=== PATIENT | female | born 1950 | race Caucasian/White ===

== ENCOUNTER 2024-10-05 13:59 | Inpatient (IN) | payer OTHER, SELFPAY ==
[2024-10-05] VITALS (38 sets, daily range): BP systolic 82–141; BP diastolic 57–99; BMI 34.6
[2024-10-05 08:54] LABS: % Basophils 0.4 % (0-2); % Eosinophils 2.3 % (0-6); % Immature Granulocytes 0.4 % (0-0.5); % Lymphocytes 24.3 % (20.5-51.1); % Monocytes 6.2 % (1.7-9.3); % Neutrophils 66.4 % (42.2-75.2); Absolute Eosinophils 0.1 10^3/uL (0-0.7); Absolute Lymphocytes 1.4 10^3/uL (1.2-3.4); Absolute Monocytes 0.4 10^3/uL (0.1-0.6); Absolute Neutrophils 3.7 10^3/uL (1.4-6.5); Hematocrit 43.5 % (37.0-47.0); Hemoglobin 14.9 g/dL (12.0-16.0); Mean Corp Hgb Conc. 34.3 g/dL (33.0-37.0); Mean Corpuscular Hgb 31.7 pg (27.0-31.0); Mean Corpuscular Volume 92.6 fL (81.0-99.0); Mean Platelet Volume 9.1 fL (7.4-10.4); Nucleated Red Blood Cells % 0 %; Platelet Count 175 10^3/uL (130-400); Red Cell Dist. Width 14.5 % (11.5-14.5); White Blood Cell Count 5.6 10^3/uL (4.8-10.8)
[2024-10-05 09:05] LABS: INR 0.91; PT 12.6 Sec (11.4-14.6)
--- NOTE | 2024-10-05 09:11 | ED.GENMED ---
History of Present Illness
<Alyce Xiao MD, Resident - Last Filed: 10/05/24 09:45>
General
Chief Complaint: Chest Pain
Time Seen by Provider: 10/05/24 08:45
History of Present Illness
History of Present Illness:
74 y/o female with past medical history of A-fib (on Xarelto and metoprolol) and hypothyroidism presenting to ED with chest pain starting this morning. Patient reports occasionally has episodes of A-fib but this morning the pain persisted. Patient
notes heaviness in the mid thoracic region that extends to the lower mandible, sweats, and dizziness. Also notes that had reaction to the RSV vaccine late May this year and has been on chronic prednisone, currently takes milligram prednisone daily.
Denies cough, fever chills, headache, weakness, trouble speaking and loss of sensation. Has been having nasal congestion for the past few days.
Past History
<Alyce Xiao MD, Resident - Last Filed: 10/05/24 09:45>
Past History
ED Past Medical History: Arrthythmia (afib) and Hypothyroidism
ED Past Surgical History: Appendectomy, , Gynecological, Orthopedic and Tonsilectomy
Social History
Tobacco: Non-smoker
Alcohol: None
Drug: None
Personal:
Living: with family
Review of Systems
<Alyce Xiao MD, Resident - Last Filed: 10/05/24 09:45>
Review of Systems
Constitutional: Reports no symptoms
EENT: Reports other (nasal congestion)
Respiratory: Reports no symptoms
Phy Exam
<Alyce Xiao MD, Resident - Last Filed: 10/05/24 09:45>
Physical Exam
Physical Exam:
GENERAL: Alert, in no apparent distress, face is red
EYE: pupils equal and reactive
NECK: Supple, no significant adenopathy. No carotid bruit.
ENT: o/p clr, mmm.
CARDIAC: irregular rate and rhythm.
LUNGS: Clear breath sounds bilaterally, no acute respiratory distress, no wheezes/rales/rhonchi
ABDOMEN: Soft, without focal tenderness, no r/g, no cvat
NEUROLOGICAL: Alert and oriented, no focal neuro deficits
SKIN: Warm and dry, skin intact.
MUSCULOSKELETAL: No edema, well perfused.
PSYCH: Normal and appropriate interaction.
Scores
<Charlie Jeong, DO - Last Filed: 10/05/24 13:29>
Heart Score for Chest Pain Patients
STEMI patient?: No
History: Slightly or Non-Suspicious
ECG: Nonspecific Repolarization
Age: >45 - <65 years
Risk Factors: 1 or 2 Risk Factors
Troponin: </= Normal Limit
Heart Score for Chest Pain Patients: 3
Heart Score Risk: 2.5% MACE over next 6 weeks
Course
<Alyce Xiao MD, Resident - Last Filed: 10/05/24 09:45>
Orders/Labs/Results
Orders:
Orders
10/05/24
Electrocardiogram (*1) Stat
Reason for Study: Chest Pain
Comment: DONE
10/05/24 08:39
Electrocardiogram (*1) Urgent
Reason for Study: Chest Pain
EKG- Treatment ONCE
10/05/24 08:43
Complete Blood Count/With Diff Urgent
Prothrombin Time Urgent
Troponin I Urgent
10/05/24 09:09
Add On- LAB Urgent
Tests Added?: magnesium
Diltiazem 125 mg/125 ml Nss [Cardizem] 125 mg in 125 ml IV NOW
Initial dose in mg/hr, then titrate:: 5
Titrate to keep:: Heart rate 80-100 bpm
Titrate by mg/hr:: 5 mg/hr
Frequency of titrations (minutes):: 15
Maximum dose in mg/hr:: 15
Diltiazem HCl [Cardizem] 10 mg IV NOW STA
CR Chest Portable - 1 View Urgent
Comment:
Reason For Exam: cp
Reason Study Needs to be Portable: Patient Unstable
10/05/24 09:10
Comprehensive Metabolic Panel Urgent
Magnesium Urgent
Comment: ADD ON
10/05/24 10:40
COVID-19 Antigen Urgent
Source: Nasal Swab
Influenza A+B Rapid Molecular Urgent
EFRA Source: Nasal Swab
Specimen Description:
10/05/24 11:02
0.9% Sodium Chloride 500 ml [Nss] 500 ml IV BOLUS
10/05/24 11:38
Troponin I Urgent
10/05/24 12:28
ASA Classification Routine
Propofol [Diprivan] 100 mg IV NOW STA
10/05/24 13:11
Acetaminophen [Tylenol] 1,000 mg PO BIDPRN PRN
Metoprolol [Lopressor] 25 mg PO DAILYPRN PRN
10/05/24 13:15
CARDIOLOGY CONSULT Routine
Consulting Provider: Checo [place]
Was physician already notified: Yes
Polymyxin B/Trimethoprim [Polytrim Ophthalmic Solution] 1 drop LEFT EYE Q4H
Rivaroxaban [Xarelto] 20 mg PO DAILY
10/05/24 13:18
0.9% Sodium Chloride 500 ml [Nss] 500 ml IV BOLUS
10/05/24 14:00
Levothyroxine [Synthroid] 75 mcg PO DAILY
Metoprolol Xl [Toprol Xl] 50 mg PO DAILY
10/06/24 08:00
Cholecalciferol (Vitamin D3) [VITAMIN D3 (cholecalciferol)] 50 mcg PO DAILY
Abnormal Lab Results
10/05/24 10/05/24
08:43 09:10
MCH 31.7 H pg
(27.0-31.0)
Chloride 109 H mmol/L
(98-107)
ALT 47 H U/L
(0-35)
Total Protein 6.2 L g/dl
(6.3-8.2)
10/05/24 08:43
10/05/24 09:10
Vital Signs
Initial and Last Documented VS:
Initial Vital Signs
Temp Pulse Resp
98.4 F 143 20
10/05/24 08:31 10/05/24 08:31 10/05/24 08:31
Last Documented Vital Signs
Temp Pulse Resp BP Pulse Ox
98.5 F 75 20 95/69 97
10/05/24 13:20 10/05/24 13:20 10/05/24 13:20 10/05/24 13:20 10/05/24 13:20
<Charlie Jeong, DO - Last Filed: 10/05/24 13:29>
Orders/Labs/Results
Orders:
Orders
10/05/24
Electrocardiogram (*1) Stat
Reason for Study: Chest Pain
Comment: DONE
10/05/24 08:39
Electrocardiogram (*1) Urgent
Reason for Study: Chest Pain
EKG- Treatment ONCE
10/05/24 08:43
Complete Blood Count/With Diff Urgent
Prothrombin Time Urgent
Troponin I Urgent
10/05/24 09:09
Add On- LAB Urgent
Tests Added?: magnesium
Diltiazem 125 mg/125 ml Nss [Cardizem] 125 mg in 125 ml IV NOW
Initial dose in mg/hr, then titrate:: 5
Titrate to keep:: Heart rate 80-100 bpm
Titrate by mg/hr:: 5 mg/hr
Frequency of titrations (minutes):: 15
Maximum dose in mg/hr:: 15
Diltiazem HCl [Cardizem] 10 mg IV NOW STA
CR Chest Portable - 1 View Urgent
Comment:
Reason For Exam: cp
Reason Study Needs to be Portable: Patient Unstable
10/05/24 09:10
Comprehensive Metabolic Panel Urgent
Magnesium Urgent
Comment: ADD ON
10/05/24 10:40
COVID-19 Antigen Urgent
Source: Nasal Swab
Influenza A+B Rapid Molecular Urgent
EFRA Source: Nasal Swab
Specimen Description:
10/05/24 11:02
0.9% Sodium Chloride 500 ml [Nss] 500 ml IV BOLUS
10/05/24 11:38
Troponin I Urgent
10/05/24 12:28
ASA Classification Routine
Propofol [Diprivan] 100 mg IV NOW STA
10/05/24 13:11
Acetaminophen [Tylenol] 1,000 mg PO BIDPRN PRN
Metoprolol [Lopressor] 25 mg PO DAILYPRN PRN
10/05/24 13:15
CARDIOLOGY CONSULT Routine
Consulting Provider: Checo [place]
Was physician already notified: Yes
Polymyxin B/Trimethoprim [Polytrim Ophthalmic Solution] 1 drop LEFT EYE Q4H
Rivaroxaban [Xarelto] 20 mg PO DAILY
10/05/24 13:18
0.9% Sodium Chloride 500 ml [Nss] 500 ml IV BOLUS
10/05/24 14:00
Levothyroxine [Synthroid] 75 mcg PO DAILY
Metoprolol Xl [Toprol Xl] 50 mg PO DAILY
10/06/24 08:00
Cholecalciferol (Vitamin D3) [VITAMIN D3 (cholecalciferol)] 50 mcg PO DAILY
Abnormal Lab Results
10/05/24 10/05/24
08:43 09:10
MCH 31.7 H pg
(27.0-31.0)
Chloride 109 H mmol/L
(98-107)
ALT 47 H U/L
(0-35)
Total Protein 6.2 L g/dl
(6.3-8.2)
10/05/24 08:43
10/05/24 09:10
Vital Signs
Initial and Last Documented VS:
Initial Vital Signs
Temp Pulse Resp
98.4 F 143 20
10/05/24 08:31 10/05/24 08:31 10/05/24 08:31
Last Documented Vital Signs
Temp Pulse Resp BP Pulse Ox
98.5 F 75 20 95/69 97
10/05/24 13:20 10/05/24 13:20 10/05/24 13:20 10/05/24 13:20 10/05/24 13:20
Procedures
<Charlie Jeong, DO - Last Filed: 10/05/24 13:29>
Cardioversion
Indication:: Afib
Performed by:: medhat
Synchronized?: Yes
Energy Used: Other (300)
Number of attempts: 2
Successful?: No
Complications: no
ASA Risk Score: Class II
Any reaction or bad outcome to prior sedation/anesthesia?: No history of a reaction
Sedation level to be attained: moderate
Chart and allergies reviewed: Yes
Patient reassessed prior to sedation: Yes
Time out completed at (validating right patient & procedure): 12:52
History of difficult intubation: No
Airway free of obstruction: Yes
Patient has a gag reflex: Yes
Patient is able to open mouth: Yes
Patient has no dentures: Yes
Patient has no loose teeth: Yes
Medication administered by Provider during Moderate Sedation: IV Propofol (mg)
Total dose administered: 100
Time drug administered: 12:52
Start Time: 12:52
Stop Time: 01:08
<Alyce Xiao MD, Resident - Last Filed: 10/05/24 09:45>
MDM/Problems Addressed
Differential Diagnosis Includes:
Afib
ACS
Viral myocarditis
Pulmonary embolism
Aortic dissection
Pneumonia
MDM/Problems Addressed:
- EKG
- troponin
- CBC, CMP
- Chest x-ray
- Rate control - Cardizem drip
<Charlie Jeong, DO - Last Filed: 10/05/24 13:29>
MDM/Problems Addressed
Chronic conditions affecting care: Arrhythmia
Acute Exacerbation and/or Progression of Chronic Illness: Arrhythmia
<Charlie Jeong, DO - Last Filed: 10/05/24 13:29>
*Radiology
Radiology exam reviewed: preliminary read by ED provider
*Pulse Oximetry
Patient hypoxic: no
*EKG
Interpreted by ED Provider?: Yes
Interpretation: abnormal
Comparison EKG: changes noted
Heart Rate: 148
Rate: tachycardiac
Rhythm: SVT
[place]: normal axis
Ischemia: non-specific ST changes
*S[facility] [employer] Interpretation
Rate: tachycardiac
Interpretation: abnormal
Heart Rate: 118
Rhythm: atrial flutter
*Critical Care Note
Total Time (30-74mins, 75-104mins- exclusive of procedures): 30
<Charlie Jeong, DO - Last Filed: 10/05/24 13:29>
Update Note
Update Note:
11:15 AM patient still in A-fib intermittent fast with slower rates, will titrate Cardizem as tolerated will start some fluids troponin undetectable will repeat review DC cardioversion versus meds versus admit she will think about what she would
like to do,
12:30 PM patient still in A-fib with intermittently fast rates blood pressure in the 80s troponin x 2 negative labs are negative, at this point I recommended a trial of cardioversion which she has agreed to, she has been compliant with her Xarelto
Attempt x 2 at DC cardioversion she did not hold the sinus rhythm, this point we will let her wake up give her her Xarelto which she is due for metoprolol cardiology has been consulted she sees Dr. Medina CCP hospitalist will admit
ED Attending Note
<Alyce Xiao MD, Resident - Last Filed: 10/05/24 09:45>
-
Portions of this chart may have been created with voice recognition software.� Occasional wrong word or��sound alike� substitutions may have occurred due to the inherent limitations of voice recognition software.
<Charlie Jeong DO - Last Filed: 10/05/24 13:29>
ED Attending Note
Patient seen and examined by attending physician: Yes
I performed a history and physical exam of patient and discussed management with resident, I reviewed resident's note and agree with documented findings and plan of care.: Yes
ED Attending Note:
Seen with resident, 74-year-old female PAF hypothyroid on beta-chris and Xarelto, had RSV shot rash after that started on steroids few days of URI symptoms palpitations and chest pressure no fevers, no hemoptysis here looks like she is in and out
of a fast AF SVT, will start on rate control check electrolytes and viral swabs, troponin
Discharge Plan
Departure
Patient Disposition: Admit
Date of Disposition: 10/05/24
Time of Disposition: 13:13
Admit to: IVU
Presentation/result/management discussed w/ accepting MD/DO: Hospitalist
Patient with high blood pressure during this ER visit?: No
Condition: Fair
Covid-19: Not Applicable
Discharge Problem:
Atrial fibrillation with RVR
Prescriptions:
No Action
acetaminophen [Tylenol Extra Strength] 500 mg Tablet
1,000 mg PO BIDPRN PRN (Reason: mild pain)
levothyroxine 75 mcg Tablet
75 mcg PO DAILY
polymyxin B sulf-trimethoprim 10,000 unit- 1 mg/mL drops
1 drp LEFT EYE Q4H
metoprolol tartrate 25 mg Tablet
25 mg PO DAILYPRN PRN (Reason: palpitations)
cholecalciferol (vitamin D3) [Vitamin D3] 50 mcg (2,000 unit) Tablet
50 mcg PO DAILY
Xarelto 20 mg Tablet
20 mg PO DAILY
metoprolol succinate [Toprol XL] 50 mg tablet extended release 24 hr
50 mg PO DAILY
Referrals:
Naheed Houston DO [Family Provider] -
Interventions
Interventions:
*Risk Screen - Suicide Last Done: 10/05/24 08:31
*General Assessment Last Done: 10/05/24 08:31
*Neglect/Abuse Screening Last Done: 10/05/24 08:31
*ED COVID-19 Vaccine History Last Done: 10/05/24 10:48
ED- Cardiac Assessment Last Done: 10/05/24 10:48
Discharge Date and Time
Print Language: LEBANESE
[2024-10-05 09:16] LABS: Troponin I < 0.012 ng/ml
[2024-10-05] MEDS: CARDIZEM 10 MG IV (09:16)
[2024-10-05] MEDS: CARDIZEM 125 IV (09:17)
[2024-10-05 09:37] LABS: ALT (SGPT) 47 U/L (0-35); AST (SGOT) 30 U/L (14-36); Albumin 3.8 g/dl (3.5-5.0); Alkaline Phosphatase 70 U/L (38-126); Blood Urea Nitrogen 12 mg/dl (7-17); Calcium 8.7 mg/dl (8.4-10.2); Carbon Dioxide 25 mmol/L (22-30); Chloride 109 mmol/L (98-107); Estimated Creatinine Clearance 109 ml/min; Glucose 95 mg/dl (70-99); Magnesium 2.2 mg/dl (1.6-2.3); Potassium 4.4 mmol/L (3.5-5.1); Sodium 142 mmol/L (135-145); Total Bilirubin 0.7 mg/dl (0.2-1.3); Total Protein 6.2 g/dl (6.3-8.2); eGFR > 60.00
[2024-10-05] MEDS: NSS 500 IV ×2 (11:04→13:23)
[2024-10-05 11:05] LABS: COVID-19 Antigen Negative (Negative)
[2024-10-05 12:13] LABS: Troponin I < 0.012 ng/ml
[2024-10-05] MEDS: DIPRIVAN 100 MG IV (12:53)
--- NOTE | 2024-10-05 13:17 | HPS.HSE ---
Family Physician
-
Family Physician: Naheed Houston
Chief Complaint
-
chest pain
History of Present Illness
74 y/o female with past medical history of A-fib (on Xarelto and metoprolol) and hypothyroidism presenting to ED with chest pain starting this morning. Patient reports occasionally has episodes of A-fib but this morning the pain persisted. chest
pain radiating to lower mandible neck and throat she was having sweats, and dizziness. Denies cough, fever chills, headache, weakness, trouble speaking and loss of sensation. denied nasal congestion. denied abdominal pain,n,v,d. denied dysuria or
hematuria.
upon arrival noted in atrial fib with RVR. on Cardizem. admitting for further management.
Medical History
Past Medical History
Past Medical History: Reports Other
Additional Past Medical History:
atrial fib
hypothyroidism
Past Surgical History: Reports Other
Additional Past Surgical History:
appendectomy
tonsillectomy
Social History
Tobacco: Non-smoker
Alcohol: None
Drug: None
Family History
Family History: Not pertinent
Allergies / Home Medications
Allergies reflects when Allergies were last updated in [facility].
Home Medications with original date entered in [facility]
Allergy/Medication List:
Allergies
Allergy/AdvReac Type Severity Reaction Status Date / Time
hydromorphone [From Dilaudid] Allergy Unknown Verified 10/05/24 08:38
shellfish derived Allergy Unknown Verified 10/05/24 08:38
acetaminophen [From Percocet] AdvReac Nausea / Verified 10/05/24 08:38
Vomiting
oxycodone [From Percocet] AdvReac Nausea / Verified 10/05/24 08:38
Vomiting
propoxyphene AdvReac Nausea / Verified 10/05/24 08:38
[From Darvocet-N] Vomiting
Home Medications
acetaminophen 500 mg tablet (Tylenol Extra Strength) 1,000 mg PO BIDPRN PRN mild pain 10/05/24
cholecalciferol (vitamin D3) 50 mcg (2,000 unit) tablet (Vitamin D3) 50 mcg PO DAILY 10/05/24
levothyroxine 75 mcg tablet 75 mcg PO DAILY 10/05/24
metoprolol succinate 50 mg tablet,extended release 24 hr (Toprol XL) 50 mg PO DAILY 10/05/24
metoprolol tartrate 25 mg tablet 25 mg PO DAILYPRN PRN palpitations 10/05/24
polymyxin B sulfate 10,000 unit-trimethoprim 1 mg/mL eye drops 1 drp LEFT EYE Q4H 10/05/24
rivaroxaban 20 mg tablet (Xarelto) 20 mg PO DAILY 10/05/24
Review of Systems
-
Constitutional: Reports No Symptoms
EENT: Reports No Symptoms
Respiratory: Reports Trouble Breathing
Cardiac: Reports No Symptoms, Chest Pain, Diaphoresis and Palpitations
Abdomen/GI: Reports No Symptoms
: Reports No Symptoms
Musculoskeletal: Reports No Symptoms
Skin: Reports No Symptoms
Neurological: Reports Dizzy
Endocrine: Reports No Symptoms
Hematologic/Lymphatic: Reports No Symptoms
Psych: Reports No Symptoms
Physical Exam
Vital Signs
Vital Signs
Temp Pulse Resp BP Pulse Ox
98.5 F 96 14 108/68 4
10/05/24 12:50 10/05/24 12:53 10/05/24 12:53 10/05/24 12:50 10/05/24 12:53
Physical Exam
General: Well Developed, Well Nourished and No Apparent Distress
HEENT: NormoCephalic, Moist mucous membranes and Atraumatic
Respiratory: Clear
Cardiac: Regular Rhythm, Irregular Rhythm and Tachycardia; No Murmur or Rub
GI: Soft, Non Tender, Non Distended and Normal Bowel Sounds; No Organomegaly
Rectal: Deferred by Provider
Musculoskeletal: No Clubbing, No Cyanosis and No Edema
Skin: No Rash
Neuro: AO x 3 and Nonfocal/grossly intact
Psych: Calm
Laboratory Results
-
10/05/24 08:43
10/05/24 09:10
Laboratory Results
PT 12.6 Sec (11.4-14.6) 10/05/24 08:43
INR 0.91 10/05/24 08:43
Total Bilirubin 0.7 mg/dl (0.2-1.3) 10/05/24 09:10
AST 30 U/L (14-36) 10/05/24 09:10
ALT 47 U/L (0-35) H 10/05/24 09:10
Alkaline Phosphatase 70 U/L (38-126) 10/05/24 09:10
Troponin I < 0.012 ng/ml 10/05/24 11:38
Data Reviewed
-
Diagnostic Radiology: Report Reviewed by me
Lab Data: Labs Reviewed by me
Impression/Plan
-
# Atrial for with RVR
-On Xarelto, metoprolol
-Cardiology consulted
-Cardizem drip
-metoprolol and Xarelto continued
# Chest pain r/o ACS
-Troponin negative
-Continue to trend troponin
hypothyroidism
-levothyroxine continued
#DVT prophylaxis
-Xarelto
#CODE status
-full code
--- NOTE | 2024-10-05 14:01 | W.PN.UPDATE ---
Update Note
Progress Note Update
This note serves as an addendum to the H&P by watch case polisher BRIAN Maryam LAGOS
HPI
74F HX A-fib (on Xarelto and metoprolol) and hypothyroidism seen at ED
- onset of chest pain starting this morning
- chest pain radiating to lower mandible neck and throat she was having sweats, and dizziness.
- reports occasionally has episodes of A-fib but this morning the pain persisted
ROS:
Denies cough, fever chills, headache, weakness, trouble speaking and loss of sensation.
Denied nasal congestion.
Denied abdominal pain,n,v,d.
Denied dysuria or hematuria.
PHX: see above
Reviewed VS:
Selected Entries
10/05/24
13:00 10/05/24
13:05 10/05/24
13:10
Pulse 115 64 123
Blood pressure 88/68 100/90
10/05/24
13:20
Pulse 75
Blood pressure 95/69
PE
General: No Apparent Distress
HEENT: Moist mucous membranes and Atraumatic
Respiratory: Clear
Cardiac: In and out of Regular and Irregular Rhythm and Tachycardia; No Murmur
GI: Soft, Non Tender, Non Distended and Normal Bowel Sounds; No Organomegaly
Rectal: Deferred by Provider
Musculoskeletal: No Clubbing, No Cyanosis and No Edema
Skin: No Rash
Neuro: AO x 3 and Nonfocal/grossly intact
Psych: Calm
Laboratory Tests
10/05/24 10/05/24
10:40 11:38
Troponin I < 0.012
SARS-CoV-2 Antigen Negative
CXR: No acute cardiopulmonary process.
EKG
SUPRAVENTRICULAR TACHYCARDIA
NONSPECIFIC ST ABNORMALITY
ABNORMAL ECG
WHEN COMPARED WITH ECG OF 17-JUN-2023 11:28,
PREMATURE ATRIAL COMPLEXES ARE NO LONGER PRESENT
MD INTERVAL HAS DECREASED
VENT. RATE HAS INCREASED BY 57 BPM
ASSESSMENT & PLAN
Prox Atrial for with RVR
Associated with hypotension
failed 2 attempted DCCV @ ER
- On Xarelto, metoprolol
- agree with Cardizem gtt but currently holding due to hypotension
- metoprolol and Xarelto continued
- CBC card consulted
Chest pain r/o ACS
- NEG first TPNI
-Continue to trend troponin
Hypothyroidism
-levothyroxine continued
DVT Px: Xarelto
Full code
IVU
[2024-10-05] MEDS: XARELTO 20 MG PO (14:38)
[2024-10-05] MEDS: POLYTRIM OPHTHALMIC SOLUTION 1 DROP LEFT EYE ×3 (14:38→20:54)
[2024-10-05] MEDS: TOPROL XL 50 MG PO (14:39)
[2024-10-05] MEDS: SYNTHROID 75 MCG PO (14:39)
--- NOTE | 2024-10-05 15:03 | CM ---
Chart reviewed. Patient is here for chest pain. Has a-fib. Currently on card gtt. CM introduced self and role. A female family member also in room. Patient lives in [place] home with her and dog. She is independent and drives. She is a retired
[employer] it portfolio manager. Her son in law or daughter will provide transportation once she is discharged from the hospital. She does not own any DME. She has an active PCP and pharmacy. She denied any +SDOHs.
ANTICIPATED DISCHARGE DISPO: Home, when medically cleared.
--- NOTE | 2024-10-05 16:38 | PTCARENOTE ---
Received patient from the ED with HARISH. Patient presently with HR in the 80's, AF/flutter with runs of SR with frequent PAC's. Patient denies any pain or discomfort, VSS. Oriented to the room and plan of care, call ramirez at bedside. Transfer orders
with cardizem gtt orders, which were discontinued in the ED at 1300 according to report. TT to Dr. Romero who will discontinue cardizem and order prn IV metoprolol.
--- NOTE | 2024-10-05 17:25 | CON.CAR ---
Consultation
Consultation Request
Date/Time Consultation Requested: 10/05/24, 1pm
Date/Time Consultation Performed: 10/05/24, 4pm
Requesting Provider: Nick
Performing Provider: Cristofer
Reason for Consultation: A fib with RVR
Medical History
-
Chief Complaint: palps
History of Present Illness:
74 yo female with PMH of paroxysmal A fib on xarelto, hypothyroid, obesity presented to ED with palps, diaphoresis, chest tightness. Typical sxs of her A fib. She was in A fib with RVR. Trialed on diltiazem drip, then DCCV in ED. Following DCCV
x2, she remains paroxysmal, and was admitted.
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
Past Medical History
Past Medical History: Arrhythmias (paroxysmal A fib), Hypothyroidism and Other (obesity)
Past Surgical History: Appendectomy and Tonsilectomy
Social History
Tobacco: Former Smoker (decades prior)
Family History
Family History: Early CAD (father) and Other (aortic aneurysm, father)
Allergies / Home Medications
Allergy/AdvReac Type Severity Reaction Status Date / Time
hydromorphone [From Dilaudid] Allergy Unknown Verified 10/05/24 08:38
shellfish derived Allergy Unknown Verified 10/05/24 08:38
acetaminophen [From Percocet] AdvReac Nausea / Verified 10/05/24 08:38
Vomiting
oxycodone [From Percocet] AdvReac Nausea / Verified 10/05/24 08:38
Vomiting
propoxyphene AdvReac Nausea / Verified 10/05/24 08:38
[From Darvocet-N] Vomiting
�Medication �Instructions �Recorded �Confirmed �Type
acetaminophen 500 mg tablet 1,000 mg PO BIDPRN PRN mild pain 10/05/24 10/05/24 History
(Tylenol Extra Strength)
cholecalciferol (vitamin D3) 50 50 mcg PO DAILY 10/05/24 10/05/24 History
mcg (2,000 unit) tablet (Vitamin
D3)
levothyroxine 75 mcg tablet 75 mcg PO DAILY 10/05/24 10/05/24 History
metoprolol succinate 50 mg 50 mg PO DAILY 10/05/24 10/05/24 History
tablet,extended release 24 hr
(Toprol XL)
metoprolol tartrate 25 mg tablet 25 mg PO DAILYPRN PRN palpitations 10/05/24 10/05/24 History
polymyxin B sulfate 10,000 1 drp LEFT EYE Q4H 10/05/24 10/05/24 History
unit-trimethoprim 1 mg/mL eye drops
rivaroxaban 20 mg tablet (Xarelto) 20 mg PO DAILY 10/05/24 10/05/24 History
Review of Systems
-
History Source: Patient
All other systems: Negative unless noted
Constitutional: Fatigue
Cardiac: Chest Pain, Diaphoresis and Palpitations
Physical Exam
Vital Signs
Temp Pulse Resp BP Pulse Ox
98.0 F 63 22 129/76 97
10/05/24 15:38 10/05/24 16:15 10/05/24 16:01 10/05/24 16:14 10/05/24 16:11
Lab Results
10/05/24 08:43
10/05/24 09:10
Troponin I < 0.012 ng/ml 10/05/24 11:38
Physical Exam
General: Well Developed and Well Nourished
HEENT: Normocephalic and Anicteric
Respiratory: Clear and Non Labored Respirations
Cardiac: S1/S2 (normal), Irregular Rhythm, Murmur (none), Peripheral Edema (none) and JVD (none)
Musculoskeletal: No Clubbing, No Cyanosis and No Edema
Skin: Warm and Dry
Neuro: AO x 3
Psych: Calm
Impression / Plan
-
74 yo female with PMH of paroxysmal A fib on xarelto, hypothyroid, obesity presented to ED with palps, diaphoresis, chest tightness. Typical sxs of her A fib. She was in A fib with RVR.
Trialed on diltiazem drip, then DCCV in ED. Following DCCV x2, she remains paroxysmal, and was admitted.
Cards: [facility] ([facility])
# A fib with RVR, symptomatic
-h/o of paroxysmal A fib, and on xarelto (CHADS2-VASC =3)
-she takes Toprol XL 50mg daily at home: continue
-she has consulted for PVI, but not ready to proceed yet (takes care of sick and worried about recovery period)
-we discussed AAD: sotalol, tikosyn, amiodarone--she declines
-stop diltiazem drip; we will add diltiazem 180mg daily, first dose now, and re-assess in AM
-if RVR recurs, will go back on diltiazem drip
-echo in AM
-she reports 'normal' stress test in 2022
#Hypothyroidism: she will continue on synthroid
#Obesity
Data Reviewed
-
EKG: Tracing Personally Visualized and interpreted (A fib with RVR) and Other (Tele: Sinus with frequent brief runs of A fib)
Radiology: Report Reviewed by me (CXR: NAD)
Labs: Labs Reviewed by me
[2024-10-05] MEDS: CARDIZEM CD 180 MG PO (17:49)
[2024-10-05] MEDS: TYLENOL 1000 MG PO (19:46)
[2024-10-05 20:03] LABS: Troponin I < 0.012 ng/ml
[2024-10-05] MEDS: ZOFRAN 4 MG IV (20:54)
[2024-10-06 00:11] LABS: Troponin I < 0.012 ng/ml
[2024-10-06] MEDS: POLYTRIM OPHTHALMIC SOLUTION LEFT EYE ×2 (01:50)
[2024-10-06 03:42] VITALS: BP 137/76
--- NOTE | 2024-10-06 04:17 | PTCARENOTE ---
Pt c/o lower abdomen cramps associated with loose stool and nausea. PRN Tylenol and Zofran given and effective. VSS NSR with PACs. Pt ambulates independently in the room. Call ramirez in reach
[2024-10-06 04:49] LABS: HDL Cholesterol 58 mg/dl; LDL Cholesterol, Calculated 92 mg/dl; Total Cholesterol 179 mg/dl (50-199); Triglyceride 145 mg/dl (10-149); Very Low Density Lipoprotein 29 mg/dl (0-30)
[2024-10-06 04:59] LABS: Troponin I < 0.012 ng/ml
[2024-10-06 05:17] LABS: TSH 3.66 uIU/ml (0.47-4.68)
[2024-10-06] MEDS: SYNTHROID 75 MCG PO (05:52)
[2024-10-06] MEDS: POLYTRIM OPHTHALMIC SOLUTION 1 DROP LEFT EYE ×2 (05:52→11:03)
[2024-10-06 05:55] VITALS: BMI 34.3
--- NOTE | 2024-10-06 06:55 | W.PN.HOSP.TC ---
Today's Communication/Plan
-
Discharge home later today
Assessment / Plan
Assessment / Plan
Physical Exam
General: Well Developed, Well Nourished and No Apparent Distress
HEENT: NormoCephalic, Moist mucous membranes and Atraumatic
Respiratory: Clear
Cardiac: Regular Rhythm, Irregular Rhythm and Tachycardia; No Murmur or Rub
GI: Soft, Non Tender, Non Distended and Normal Bowel Sounds; No Organomegaly
Rectal: Deferred by Provider
Musculoskeletal: No Clubbing, No Cyanosis and No Edema
Skin: No Rash
Neuro: AO x 3 and Nonfocal/grossly intact
Psych: Calm
# paroxysmal Atrial fibrillation with RVR
-On Xarelto, metoprolol
-Cardiology consulted, recommend: Home on old Xarelto, metoprolol and new diltiazem, adding PRN propranolol (immediate release) 20 mg q 6hrs prn breakthrough rapid PAF
-s/p Cardizem drip
-metoprolol and Xarelto continued
Ordered echo
Appreciate cardiology help
# Chest pain, not c/w ACS
-Troponin negative
resolved.
#hypothyroidism
-levothyroxine continued
#DVT prophylaxis
-Xarelto
#CODE status
-full code
Total discharge time spent to see the patient, examine the patient on the floor, review data and lab results, discuss discharge plan with patient, nursing staff around 65 minutes
Anticipated Discharge: Today
Subjective/Interval History
-
Date of Service: October 06, 2024
No chest pain
No sob
She would like to go home
Objective Data
-
Vital Signs:
Vital Signs
Temp Pulse Resp BP Pulse Ox
97.9 F 63 17 137/76 94
10/06/24 03:42 10/06/24 04:00 10/06/24 03:42 10/06/24 03:42 10/06/24 03:42
[2024-10-06 08:16] VITALS: BP 141/81
[2024-10-06] MEDS: CARDIZEM CD 180 MG PO (08:18)
[2024-10-06] MEDS: VITAMIN D3 (cholecalciferol) 50 MCG PO (08:19)
[2024-10-06] MEDS: TOPROL XL 50 MG PO (08:19)
[2024-10-06] MEDS: XARELTO 20 MG PO (08:19)
--- NOTE | 2024-10-06 09:09 | PTCARENOTE ---
Received patient this morning oob in the chair eating breakfast. Remains in SR, seen by hospitalist, patient is anxious to go home. Reports no pain or discomfort. Patient scheduled for echo, await further orders from cardiology.
--- NOTE | 2024-10-06 09:41 | W.PN.CD ---
Today's Communication / Plan
-
- Home on old Xarelto, metoprolol and new dilt. She knows to watch her BP/HR on combined dilt/metoprolol
- Home after echo
- I suggest adding PRN propranolol (immediate release) 20 mg q 6hrs prn breakthrough rapid PAF
- F/u with her manufacturing development engineer
Impression / Plan
-
74 yo female with PMH of paroxysmal A fib on xarelto, hypothyroid, obesity presented to ED with palps, diaphoresis, chest tightness. Typical sxs of her A fib. She was in A fib with RVR.
Trialed on diltiazem drip, then DCCV in ED. Following DCCV x2, she remains paroxysmal, and was admitted.
Cards: [facility] ([facility])
AFib RVR
- Now doing well
- Yesterday short runs PAT
- Long hx of PAF
- Not interested in AAD or ablation quite yet
- Home on old Xarelto, metoprolol and new dilt. She knows to watch her BP/HR on combined dilt/metoprolol
- I reviewed AFIb risk factor modification is detail: BMI/ETOH/Exercise/Sleep apnea
Hypothyroidism: she will continue on Synthroid
Obesity
Subjective: No CP or dyspnea
Physical Exam
Vital Signs/Labs
Vital Signs
Temp Pulse Resp BP Pulse Ox
98.3 F 63 20 137/76 96
10/06/24 08:16 10/06/24 04:00 10/06/24 08:16 10/06/24 03:42 10/06/24 08:16
10/05/24 10/06/24 10/07/24
06:59 06:59 06:59
Actual Weight 108.3 kg
10/05/24 08:43
10/05/24 09:10
PT 12.6 Sec (11.4-14.6) 10/05/24 08:43
INR 0.91 10/05/24 08:43
Magnesium 2.2 mg/dl (1.6-2.3) 10/05/24 09:10
Triglycerides 145 mg/dl (10-149) 10/06/24 03:51
LDL Cholesterol, Calc 92 mg/dl 10/06/24 03:51
VLDL Cholesterol, Calc 29 mg/dl (0-30) 10/06/24 03:51
HDL Cholesterol 58 mg/dl 10/06/24 03:51
TSH 3.66 uIU/ml (0.47-4.68) 10/06/24 03:51
LAB Results
10/05/24 10/05/24 10/05/24
08:43 11:38 19:30
Troponin I < 0.012 < 0.012 < 0.012
10/05/24 10/06/24
23:25 03:51
Troponin I < 0.012 < 0.012
Physical Exam
Constitutional: No acute distress
EENT: Anicteric
Cardiovascular: Rhythm & rate is regular and Pedal edema is absent
Respiratory: Respiratory effort normal and Lungs clear to auscul.
GI: Soft and Distention absent
Neuro/Psych: AO x 3
Data Reviewed
-
Date of Service: October 06, 2024
[2024-10-06 11:16] VITALS: BP 138/74
--- NOTE | 2024-10-06 14:45 | PTCARENOTE ---
Echo completed, discharge ordered as per hospitalist. Reviewed discharge instructions and new prescriptions/follow up appointments with the patient and she states her understanding. Patient discharged home with her son-n-law.
--- NOTE | 2024-10-06 14:46 | W.DCSUMMARY ---
Discharge Summary
Discharge Data
Date of Admission: 10/05/24
Date of Discharge: 10/06/24
-
Pending Results: No
Hospital Course
74 years old female presented to ED with palpitations, diaphoresis and chest tightness. She was found in rapid atrial fibrillation. She was started on Cardizem drip and had cardioversion twice but remained in Atrial fibrillation. Patient was
evaluated by it infrastructure manager, her heart rate became stable and she started to feel better. Echocardiogram showed LVEF 70-75% with no regional wall motion abnormalities, normal right ventricle with no significant valvular heart disease. Customer Complaint Service Supervisor
discussed with the patient regarding option to treat A-Fib, she was not interested in AAD or ablation quite yet. Reviewed A-Fib risk factor modification in detail: BMI/ETOH/Exercise/Sleep apnea, she verbalized understanding. She remained
hemodynamically stable and was discharged on oral Cardizem, to continue Xarelto and Toprol. She was advised to follow with her primary it infrastructure manager. She was discharged home in a stable condition.
Discharge Plan
-
Patient Disposition: Home (Routine Discharge)
Discharge Diagnosis/Procedures: Atrial fibrillation
You were seen by it infrastructure manager.
Started on new medication called Cardizem: calcium channel chris. Potential side efefcts include bradycardia, hypotension. Use propranolol for breakthrough palpitations/atrial fibrillation
Diet: As tolerated
Referrals:
Naheed Houston DO [Family Provider] - in less than 1 week
Ovidio Medina DO [Non-Admitting Privileges] - in one to two weeks
Prescriptions:
New
diltiazem HCl 180 mg Capsule,Extended Release 24hr
180 mg PO DAILY Qty: 30 0RF
propranolol 20 mg tablet
20 mg PO Q6HPRN PRN (Reason: breakthrough rapid a-fib) Qty: 20 0RF
Continued
acetaminophen [Tylenol Extra Strength] 500 mg Tablet
1,000 mg PO BIDPRN PRN (Reason: mild pain)
levothyroxine 75 mcg Tablet
75 mcg PO DAILY
polymyxin B sulf-trimethoprim 10,000 unit- 1 mg/mL drops
1 drp LEFT EYE Q4H
cholecalciferol (vitamin D3) [Vitamin D3] 50 mcg (2,000 unit) Tablet
50 mcg PO DAILY
Xarelto 20 mg Tablet
20 mg PO DAILY
metoprolol succinate [Toprol XL] 50 mg tablet extended release 24 hr
50 mg PO DAILY
Discontinued
metoprolol tartrate 25 mg Tablet
25 mg PO DAILYPRN PRN (Reason: palpitations)
Discharge Orders:
Discharge Patient (As Directed); Ordered 10/06/24
Ordered By: Anne Mcknight
Care Plan Goals
Care Plan Goals:
Problem: Readiness for enhanced knowledge related to diagnosis and treatment plan
Goal: Understand your diagnosis and treatment plan needs, including medications if applicable.
Instructions: Know your diagnosis, underlying causes and treatment plan options, including medications if applicable. Consult with your health care team to learn about your diagnosis and treatment plan, including medications if applicable.
Discharge Date and Time
Print Language: MALIAN
[2024-10-06 18:52] LABS: Hepatitis C Antibody Negative (Negative)
== END 2024-10-06 14:46 | disposition home or self-care (01) | DRG 310 ==
LOC: IVU 13:59
PROVIDERS: Registered Nurse; ADMITTING PHYSICIAN Internal Medicine; ATTENDING PHYSICIAN Internal Medicine; CONSULT PHYSICIAN Internal Medicine; EMERGENCY PHYSICIAN Emergency Medicine; FAMILY PHYSICIAN Family Medicine
DX: I48.0 Paroxysmal atrial fibrillation (principal); Z79.01 Long term (current) use of anticoagulants; E03.9 Hypothyroidism, unspecified; Z11.52 Encounter for screening for COVID-19; Z88.8 Allergy status to other drugs, medicaments and biological substances; I95.9 Hypotension, unspecified; E66.9 Obesity, unspecified; Z68.34 Body mass index [BMI] 34.0-34.9, adult; Z87.891 Personal history of nicotine dependence; Z82.49 Family history of ischemic heart disease and other diseases of the circulatory system; Z79.890 Hormone replacement therapy; Z79.899 Other long term (current) drug therapy; I47.10 Supraventricular tachycardia, unspecified; I48.92 Unspecified atrial flutter; Z79.52 Long term (current) use of systemic steroids
CPT/HCPCS: 71045; 80053; 80061; 83735; 84443; 84484; 85025; 85610; 86803; 87502; 87811; 92960; 93005; 93306; 96374; 96375; 99152; 99291

== ENCOUNTER 2024-11-13 12:30 | Emergency (ER) | payer OTHER, SELFPAY ==
[2024-11-13 12:49] VITALS: BP 160/87
[2024-11-13 13:09] LABS: % Basophils 0.4 % (0-2); % Eosinophils 4.3 % (0-6); % Immature Granulocytes 0.2 % (0-0.5); % Lymphocytes 20.1 % (20.5-51.1); % Monocytes 7.1 % (1.7-9.3); % Neutrophils 67.9 % (42.2-75.2); Absolute Eosinophils 0.2 10^3/uL (0-0.7); Absolute Lymphocytes 1.1 10^3/uL (1.2-3.4); Absolute Monocytes 0.4 10^3/uL (0.1-0.6); Absolute Neutrophils 3.8 10^3/uL (1.4-6.5); Hematocrit 40.4 % (37.0-47.0); Hemoglobin 13.9 g/dL (12.0-16.0); Mean Corp Hgb Conc. 34.4 g/dL (33.0-37.0); Mean Corpuscular Hgb 30.2 pg (27.0-31.0); Mean Corpuscular Volume 87.6 fL (81.0-99.0); Mean Platelet Volume 9.1 fL (7.4-10.4); Nucleated Red Blood Cells % 0 %; Platelet Count 243 10^3/uL (130-400); Red Blood Cell Count 4.61 10^6/uL (4.20-5.40); White Blood Cell Count 5.6 10^3/uL (4.8-10.8)
[2024-11-13 13:33] LABS: ALT (SGPT) 29 U/L (0-35); AST (SGOT) 31 U/L (14-36); Albumin 4.2 g/dl (3.5-5.0); Alkaline Phosphatase 78 U/L (38-126); Blood Urea Nitrogen 9 mg/dl (7-17); Calcium 9.3 mg/dl (8.4-10.2); Carbon Dioxide 21 mmol/L (22-30); Chloride 106 mmol/L (98-107); Glucose 118 mg/dl (70-99); Potassium 4.3 mmol/L (3.5-5.1); Sodium 137 mmol/L (135-145); Total Bilirubin 0.7 mg/dl (0.2-1.3); Total Protein 6.8 g/dl (6.3-8.2); eGFR > 60.00
--- NOTE | 2024-11-13 13:39 | ED.GENMED ---
History of Present Illness
<Samara Clifford PA-C - Last Filed: 11/13/24 15:46>
General
Chief Complaint: Medication Reaction
Source: patient
Exam Limitations: none
Time Seen by Provider: 11/13/24 13:39
Nursing documentation reviewed up to this point in time: agreed with
History of Present Illness
History of Present Illness:
74-year-old female with a past medical history of A-fib on Xarelto and metoprolol, hypertension, hypothyroidism presents emergency department today with concerns of bilateral lower extremity edema. Patient states that this started around September
when she was first started on diltiazem for her A-fib. Patient states that the time she started develop a full body rash and bilateral lower extremity edema. Patient states that she saw herb digger and was treated and the rash resolved when
she stopped the medication. She was changed to verapamil and states that at that time, the swelling got worse. She saw her vice president consulting services in [place] [address]. [place] and was changed to metoprolol on October 31 and was told that the swelling should
improve within 2 weeks. Patient states that she feels like the swelling has gotten worse and now she has pain in her calf bilaterally. She has a lot of discomfort with walking as well. She states that night, her bilateral lower extremities will
become red. She denies any numbness or tingling, chest pain, denies any fevers or chills. Patient states that she goes in and out of afib and will become intermittently short of breath at times.
Past History
<Samara Clifford PA-C - Last Filed: 11/13/24 15:46>
Past History
ED Past Medical History: Arrthythmia (afib) and Hypothyroidism
ED Past Surgical History: Appendectomy, , Gynecological, Orthopedic and Tonsilectomy
Social History
Tobacco: Non-smoker
Alcohol: None
Drug: None
Personal:
Living: with family
Review of Systems
<Samara Clifford PA-C - Last Filed: 11/13/24 15:46>
Review of Systems
All Other Systems: ROS reviewed and negative except as documented in HPI and ROS
Phy Exam
<Samara Clifford PA-C - Last Filed: 11/13/24 15:46>
Physical Exam
Physical Exam:
General: Patient is well appearing and in no acute distress; non-toxic
Skin: Warm and dry, no rashes or lesions
Head: Normocephalic, atraumatic
Eyes: Sclera non-icteric. EOMs intact.
Cardiac: Heart rate irregularly irregular no murmurs
Peripheral Vascular: Bilateral lower extremity edema, 2+ DP and TP pulses bilaterally
Pulm: Normal respiratory effort, no crackles
Musculoskeletal: Bilateral lower extremity calf tenderness to palpation
Neuro: CN II-XII intact, no focal neurologic deficits.
Psychiatric: Appropriate mood and affect.
Course
<Samara Clifford PA-C - Last Filed: 11/13/24 15:46>
Orders/Labs/Results
Orders:
Orders
11/13/24 12:59
Complete Blood Count/With Diff Urgent
Comprehensive Metabolic Panel Urgent
11/13/24 13:56
CR Chest - 2 Views Urgent
Comment:
Reason For Exam: intermittent SOB, lower extremity swelling
US Legs, Bilateral [US Periph Venous LOWER Ext Minh] Urgent
Comment:
Reason For Exam: b/l lower extremity swelling, pain
11/13/24 14:30
NT-proBNP Urgent
Abnormal Lab Results
11/13/24
12:59
Absolute Lymphs (auto) 1.1 L 10^3/uL
(1.2-3.4)
Lymphocytes % 20.1 L %
(20.5-51.1)
Carbon Dioxide 21 L mmol/L
(22-30)
Glucose 118 H mg/dl
(70-99)
11/13/24 12:59
11/13/24 12:59
Vital Signs
Initial and Last Documented VS:
Initial Vital Signs
Temp Pulse Resp BP Pulse Ox
98 F 72 18 160/87 97
11/13/24 12:49 11/13/24 12:49 11/13/24 12:49 11/13/24 12:49 11/13/24 12:49
Last Documented Vital Signs
Temp Pulse Resp BP Pulse Ox
98 F 80 17 140/80 97
11/13/24 12:49 11/13/24 13:49 11/13/24 13:49 11/13/24 13:49 11/13/24 13:51
<Sonny Garcia MD - Last Filed: 11/13/24 14:13>
Orders/Labs/Results
Orders:
Orders
11/13/24 12:59
Complete Blood Count/With Diff Urgent
Comprehensive Metabolic Panel Urgent
11/13/24 13:56
CR Chest - 2 Views Urgent
Comment:
Reason For Exam: intermittent SOB, lower extremity swelling
US Legs, Bilateral [US Periph Venous LOWER Ext Minh] Urgent
Comment:
Reason For Exam: b/l lower extremity swelling, pain
11/13/24 14:30
NT-proBNP Urgent
Abnormal Lab Results
11/13/24
12:59
Absolute Lymphs (auto) 1.1 L 10^3/uL
(1.2-3.4)
Lymphocytes % 20.1 L %
(20.5-51.1)
Carbon Dioxide 21 L mmol/L
(22-30)
Glucose 118 H mg/dl
(70-99)
11/13/24 12:59
11/13/24 12:59
Vital Signs
Initial and Last Documented VS:
Initial Vital Signs
Temp Pulse Resp BP Pulse Ox
98 F 72 18 160/87 97
11/13/24 12:49 11/13/24 12:49 11/13/24 12:49 11/13/24 12:49 11/13/24 12:49
Last Documented Vital Signs
Temp Pulse Resp BP Pulse Ox
98 F 80 17 140/80 97
11/13/24 12:49 11/13/24 13:49 11/13/24 13:49 11/13/24 13:49 11/13/24 13:51
Jesikalt;Samara Clifford PA-C - Last Filed: 11/13/24 15:46>
MDM/Problems Addressed
Differential Diagnosis Includes:
see below
MDM/Problems Addressed:
NUMBER AND COMPLEXITY OF PROBLEMS ADDRESSED AT THE ENCOUNTER
� Chronic conditions affecting care: afib on xarelto, HTN
� Acute Exacerbation and/or Progression of Chronic Illness:
� Differential Diagnosis includes: medication reaction, bilateral DVT, venous insufficiency, cellulitis, kidney disease, heart failure
AMOUNT AND/OR COMPLEXITY OF DATA TO BE REVIEWED AND ANALYZED
� I performed an independent evaluation of and my interpretation is:
Laboratory Studies: cbc and cmp unremarkable
Other:
� Review of other/old records: reviewed discharge summary from 10/06/24, patient seen for afib with RVR, discharged on oral Cardizem, advised to follow up with her primary vice president consulting services
� Clinical information was obtained by an independent historian: n/a
� Prescriptions/Medications Considered but not given: n/a
� Further testing considered but not performed: n/a
RISK OF COMPLICATIONS AND/OR MORBIDITY OR MORTALITY OF PATIENT MANAGEMENT
� Social determinants of health affecting care:
� Discussion with other providers: ER attending
� Escalation of care including admission/observation vs risk of discharge considered:
74-year-old female with a past medical history of A-fib on Xarelto, metoprolol presents emergency department with bilateral lower extremity edema. This started after starting calcium channel blockers. Patient has been off of calcium channel
blockers for 2 weeks and reports that she still has persistent edema. Patient has tried elevating her legs without resolution of the swelling, she has no fevers or chills, no erythema in lower extremities. Her ultrasound was negative for DVTs, her
chest x-ray did not show any evidence of fluid overload, suspect dependent edema, advised patient to use compression stockings and continue to elevate her legs at home as well as follow-up with her vice president consulting services. Patient stable for discharge.
<Samara Clifford PA-C - Last Filed: 11/13/24 15:46>
*Pulse Oximetry
Patient hypoxic: no
*Critical Care Note
Total Time (30-74mins, 75-104mins- exclusive of procedures): Not Applicable
ED Attending Note
<Samara Clifford PA-C - Last Filed: 11/13/24 15:46>
-
Portions of this chart may have been created with voice recognition software.� Occasional wrong word or��sound alike� substitutions may have occurred due to the inherent limitations of voice recognition software.
<Sonny Garcia MD - Last Filed: 11/13/24 14:13>
ED Attending Note
Patient seen and examined by attending physician: Yes
ED Attending Note:
I have seen and evaluated the patient with a [id number] encounter. I have spoken to the advance practicer provider and involved in the medical history, the physical exam, medical decision making.
Evaluation and management service: agree unless noted differently below.
Results interpretation: agree unless noted differently below.
Focused HPI: 74-year-old female with a past medical history of atrial fibrillation, hypothyroidism who presents to the ER for evaluation of leg swelling. Patient reports that symptoms started a few weeks ago�initially she started with a rash after
starting diltiazem for her A-fib. She was seen by her vice president consulting services, diltiazem discontinued and switched to verapamil. Her rash resolved but she started to have swelling in her legs. She followed up with cardiology PA who discontinued the
verapamil due to leg swelling and she has been off verapamil for 2 weeks. Despite this she says that her legs are persistently swollen and she is having pain especially around the ankles which prompted her to come to the ER for evaluation.
Physical exam: Awake alert no distress. She does have bilateral lower extremity edema +1; distal EXTR warm well-perfused with good pulses. No focal tenderness in the legs but generalized tenderness of the calf and ankle.
Medical Decision Makin-year-old female presents with persistent leg swelling after starting calcium channel chris; calcium channel chris has since been discontinued but leg swelling has persisted. Vitals and exam as above. She was sent
for labs which were largely unremarkable. Sent for ultrasound to rule out DVT, x-rays to rule out any fracture but suspect that symptoms will resolve with conservative measures including compression socks and elevation of the legs.
Discharge Plan
Departure
Patient Disposition: Home (Routine Discharge)
Date of Disposition: 11/13/24
Time of Disposition: 15:33
Patient with high blood pressure during this ER visit?: Yes
Condition: Good
Discharge Problem:
Dependent edema
Instructions: Swelling, BLOOD PRESSURE
Prescriptions:
No Action
acetaminophen [Tylenol Extra Strength] 500 mg Tablet
1,000 mg PO BIDPRN PRN (Reason: mild pain)
levothyroxine 75 mcg Tablet
75 mcg PO DAILY
polymyxin B sulf-trimethoprim 10,000 unit- 1 mg/mL drops
1 drp LEFT EYE Q4H
cholecalciferol (vitamin D3) [Vitamin D3] 50 mcg (2,000 unit) Tablet
50 mcg PO DAILY
Xarelto 20 mg Tablet
20 mg PO DAILY
metoprolol succinate [Toprol XL] 50 mg tablet extended release 24 hr
50 mg PO DAILY
diltiazem HCl 180 mg Capsule,Extended Release 24hr
180 mg PO DAILY Qty: 30 0RF
propranolol 20 mg tablet
20 mg PO Q6HPRN PRN (Reason: breakthrough rapid a-fib) Qty: 20 0RF
Referrals:
Naheed Houston DO [Family Provider] -
Activity Restrictions/Additional Instructions:
Please call your vice president consulting services to schedule a follow up appointment.
Your US was negative for blood clot. Your chest x-ray did not show any evidence of fluid.
PLEASE RETURN EMERGENCY DEPARTMENT TO DEVELOP CHEST PAIN, SHORTNESS OF BREATH, SYNCOPAL EPISODES, SIGNIFICANT REDNESS TO YOUR LEGS, FEVERS OR CHILLS, OR ANY OTHER SIGNS OR SYMPTOMS CONCERNING TO YOU.
Interventions
Interventions:
*Risk Screen - Suicide Last Done: 11/13/24 12:49
*General Assessment Last Done: 11/13/24 12:49
ED-Skin Assessment Last Done: 11/13/24 13:50
ED- Pulmonary Assessment Last Done: 11/13/24 13:51
Discharge Date and Time
Print Language: [id number]
[2024-11-13 13:49] VITALS: BP 140/80
[2024-11-13 14:59] LABS: NT-proBNP 405 pg/ml
[2024-11-13 16:20] VITALS: BP 142/83
== END 2024-11-13 16:21 | disposition home or self-care (01) ==
LOC: EMR 12:30
PROVIDERS: Emergency Medicine; Physician Assistant; EMERGENCY PHYSICIAN Emergency Medicine; FAMILY PHYSICIAN Family Medicine
DX: R60.0 Localized edema (principal); M79.604 Pain in right leg; M79.605 Pain in left leg; R06.02 Shortness of breath; I48.91 Unspecified atrial fibrillation; I10 Essential (primary) hypertension; E03.9 Hypothyroidism, unspecified; K57.92 Diverticulitis of intestine, part unspecified, without perforation or abscess without bleeding; M19.90 Unspecified osteoarthritis, unspecified site; F41.9 Anxiety disorder, unspecified; Z79.01 Long term (current) use of anticoagulants; Z79.899 Other long term (current) drug therapy; Z88.6 Allergy status to analgesic agent; Z88.5 Allergy status to narcotic agent; Z91.013 Allergy to seafood
CPT/HCPCS: 99284; 71046; 80053; 83880; 85025; 93970